=== PATIENT | male | born 1960 | race Caucasian/White ===

== ENCOUNTER → 2016-09-06 | Outpatient (CLI) | payer BC, OTHER ==
--- NOTE | 2016-09-07 07:49 | REP ---
Clinical: Trauma. Laceration. Technique: AP, lateral, bilateral oblique views of the right second digit. Findings: Soft tissue swelling is appreciated without acute fracture or dislocation. No subcutaneous emphysema or radiodense foreign body. Impression: Soft-tissue swelling. No acute fracture. No foreign body. Signed by Pravin Ward MD 09/07/2016 07:40 A
== END ==
LOC: M ADAMS 19:20
PROVIDERS: ATTEND Physician Assistant
DX: M79.644 Pain in right finger(s) (principal)

== ENCOUNTER → 2017-02-08 | Outpatient (REF) | payer BC, OTHER ==
[~2017-02-08] MED LIST: ASPI1TAB PO; ATOR1TAB21 PO; CELE100C PO; METO25TA74 PO; MULT1TAB10 PO; NITR4TASL SL; OMEP40CA2 PO; PLAV75TA38 PO; RANO5TAB PO
[2017-02-08 14:19] LABS: BASO % 0.4 % (0.0-1.0); EOS # 0.1 K/mm3 (0.0-0.50); EOS % 1.2 % (0.0-3.0); LARGE UNSTAINED CELL # 0.1 K/mm3 (0.0-0.4); LARGE UNSTAINED CELL % 1.1 % (0.0-4.0); LYMPH % 20.2 % (24.0-44.0); MEAN CORPUSCULAR HEMOGLOBIN 31.5 pg (27.0-33.0); MEAN CORPUSCULAR HGB CONC 34.5 g/dl (32.0-36.5); MEAN CORPUSCULAR VOLUME 91.4 fl (80.0-96.0); MONO # 0.5 K/mm3 (0.0-0.8); MONO % 5.8 % (0.0-5.0); NEUTROPHILS # 6.7 K/mm3 (1.8-7.7); NEUTROPHILS % 71.3 % (36.0-66.0); PLATELET COUNT, AUTOMATED 149 k/mm3 (150-450); RED CELL DISTRIBUTION WIDTH 12.7 % (11.5-14.5); WHITE BLOOD COUNT 9.4 K/mm3 (4.0-10.0)
[2017-02-08 15:28] LABS: ALBUMIN/GLOBULIN RATIO 1.43 (1.00-1.93); ALKALINE PHOSPHATASE 61 U/L (45-117); ALT/SGPT 31 U/L (12-78); ANION GAP 7 MEQ/L (8-16); AST/SGOT 16 U/L (15-37); BILIRUBIN,TOTAL 0.6 MG/DL (0.2-1.0); BLOOD UREA NITROGEN 18 MG/DL (7-18); CARBON DIOXIDE LEVEL 25 MEQ/L (21-32); CHLORIDE LEVEL 108 MEQ/L (98-107); CHOLESTEROL LEVEL 157 MG/DL (<200); CREATININE FOR GFR 0.72 MG/DL (0.70-1.30); GLOMERULAR FILTRATION RATE > 60.0 (>56); GLUCOSE, FASTING 92 MG/DL (70-105); POTASSIUM SERUM 4.1 MEQ/L (3.5-5.1); SODIUM LEVEL 140 MEQ/L (136-145); TOTAL PROTEIN 6.8 GM/DL (6.4-8.2); TRIGLYCERIDES LEVEL 465 MG/DL (<150)
[2017-02-09 14:11] LABS: PSA TOTAL 0.4 ng/mL (0.0-4.0)
== END ==
LOC: M LABDRWAD 13:34
PROVIDERS: ATTEND Nurse Practitioner Family
DX: E78.4 Other hyperlipidemia (principal); K21.9 Gastro-esophageal reflux disease without esophagitis

== ENCOUNTER → 2017-02-22 | Outpatient (CLI) | payer BC, OTHER ==
[~2017-02-22] VITALS: Ht 170.2 cm; Wt 96.6 kg
[~2017-02-22] MED LIST changes: +LIDOCAINE 2% INJ 100 MG/5 ML SDV (FOR ANES.) As Ordered ONE; +METO1TAB32 PO; -METO25TA74 PO; +NS 1,000 ML IV SCH; +PLAV1TAB2 PO; -PLAV75TA38 PO; +PROPOFOL 200 MG/20 ML VIAL As Ordered ONE; +fentaNYL 100 MCG/2 ML INJECTION (J3010) As Ordered ONE
--- NOTE | 2017-02-22 08:35 | ROOR ---
Patient Name: Samuel Gannon Procedure Date: 02/22/2017 8:17 AM Date of : 1960 Age: 56 Room: [facility] Gender: Male Note Status: Finalized Procedure: Upper Endoscopy + Biopsies Indications: Heartburn, Exclusion of Gagnon's esophagus Providers: Ludwig Stanton MD Referring MD: Landon Messer NP Requesting Provider: Medicines: Monitored Anesthesia Care Complications: No immediate complications. Procedure: Pre-Anesthesia Assessment: - The heart rate, respiratory rate, oxygen saturations, blood pressure, adequacy of pulmonary ventilation, and response to care were monitored throughout the procedure. The Endoscope was introduced through the mouth, and advanced to the second part of duodenum. The upper GI endoscopy was accomplished without difficulty. The patient tolerated the procedure well. Findings: The Z-line was irregular and was found 40 cm from the incisors. Multiple biopsies were obtained with cold forceps for evaluation to rule out Gagnon's Esophagus randomly at the gastroesophageal junction. A small hiatal hernia was present. No other significant abnormalities were identified in a careful examination of the stomach. The exam of the duodenum was otherwise normal. Impression: - Z-line irregular, 40 cm from the incisors. - Small hiatal hernia. - Multiple biopsies were obtained at the gastroesophageal junction. - The examination was otherwise normal. Recommendation: - Patient has a contact number available for emergencies. The signs and symptoms of potential delayed complications were discussed with the patient. Return to normal activities tomorrow. Written discharge instructions were provided to the patient. - High fiber diet. - Discharge patient to home. - Continue present medications. - Await pathology results. - Telephone GI clinic for pathology results in 1 week. - Repeat upper endoscopy for surveillance based on pathology results. - The findings and recommendations were discussed with the patient's family. Ludwig Stanton MD Ludwig Stanton MD 02/22/2017 8:34:23 AM This report has been signed electronically. Number of Addenda: 0 Note Initiated On: 02/22/2017 8:17 AM Estimated Blood Loss: Estimated blood loss: none.
--- NOTE | 2017-02-22 08:49 | ROOR ---
Patient Name: Samuel Gannon Procedure Date: 02/22/2017 8:18 AM Date of : 1960 Age: 56 Room: [facility] Gender: Male Note Status: Finalized Procedure: Total Colonoscopy to Cecum + Biopsy Polypectomy Indications: Screening for colorectal malignant neoplasm Providers: Ludwig Stanton MD Referring MD: Landon Messer NP Requesting Provider: Medicines: Monitored Anesthesia Care Complications: No immediate complications. Procedure: Pre-Anesthesia Assessment: - The heart rate, respiratory rate, oxygen saturations, blood pressure, adequacy of pulmonary ventilation, and response to care were monitored throughout the procedure. The Colonoscope was introduced through the anus and advanced to the cecum, identified by appendiceal orifice and ileocecal valve. The colonoscopy was performed without difficulty. The patient tolerated the procedure well. The quality of the bowel preparation was excellent. Findings: The perianal and digital rectal examinations were normal. Non-bleeding internal hemorrhoids were found during retroflexion. The hemorrhoids were small and Grade I (internal hemorrhoids that do not prolapse). A diminutive polyp was found in the mid transverse colon. The polyp was sessile. The polyp was removed with a jumbo cold forceps. Resection and retrieval were complete. Scattered small-mouthed diverticula were found in the recto-sigmoid colon, sigmoid colon and descending colon. The exam was otherwise without abnormality on direct and retroflexion views. Impression: - Non-bleeding internal hemorrhoids. - One diminutive polyp in the mid transverse colon, removed with a jumbo cold forceps. Resected and retrieved. - Diverticulosis in the recto-sigmoid colon, in the sigmoid colon and in the descending colon. - The examination was otherwise normal on direct and retroflexion views. - The exam was otherwise normal to the cecum. Recommendation: - Patient has a contact number available for emergencies. The signs and symptoms of potential delayed complications were discussed with the patient. Return to normal activities tomorrow. Written discharge instructions were provided to the patient. - High fiber diet. - Discharge patient to home. - Continue present medications. - Await pathology results. - Telephone GI clinic for pathology results in 1 week. - Repeat colonoscopy in 10 years for screening purposes. - Return to referring physician. - The findings and recommendations were discussed with the patient's family. Ludwig Stanton MD Ludwig Stanton MD 02/22/2017 8:49:41 AM This report has been signed electronically. Number of Addenda: 0 Note Initiated On: 02/22/2017 8:18 AM Estimated Blood Loss: Estimated blood loss: none.
[2017-02-22 09:20] VITALS: BP 121/73
== END | disposition home or self-care (01) ==
LOC: M OPP 07:27
PROVIDERS: ATTEND Internal Medicine Gastroenterology
DX: Z12.11 Encounter for screening for malignant neoplasm of colon (principal); K64.0 First degree hemorrhoids; D12.3 Benign neoplasm of transverse colon; K57.30 Diverticulosis of large intestine without perforation or abscess without bleeding; K21.9 Gastro-esophageal reflux disease without esophagitis; K22.8 Other specified diseases of esophagus; K44.9 Diaphragmatic hernia without obstruction or gangrene; K22.70 Barrett's esophagus without dysplasia; I10 Essential (primary) hypertension; E78.00 Pure hypercholesterolemia, unspecified; I25.10 Atherosclerotic heart disease of native coronary artery without angina pectoris; E04.1 Nontoxic single thyroid nodule; F17.210 Nicotine dependence, cigarettes, uncomplicated; Z79.899 Other long term (current) drug therapy; Z79.82 Long term (current) use of aspirin; Z88.8 Allergy status to other drugs, medicaments and biological substances; Z95.5 Presence of coronary angioplasty implant and graft; I25.2 Old myocardial infarction
CPT/HCPCS: 43239; 45380; 88305; J3010

== ENCOUNTER → 2017-10-21 | Outpatient (REF) | payer OTHER ==
[2017-10-21 12:43] LABS: BASO % 0.4 % (0.0-1.0); EOS # 0.1 10^3/uL (0.0-0.50); HEMATOCRIT 44.9 % (42.0-52.0); HEMOGLOBIN 15.3 g/dl (14.0-18.0); IMMATURE GRANULOCYTE % 0.4 % (0-3.0); LYMPH # 2.3 10^3/uL (1.5-4.5); MEAN CORPUSCULAR HEMOGLOBIN 30.5 pg (27.0-33.0); MEAN CORPUSCULAR HGB CONC 34.1 g/dl (32.0-36.5); MEAN CORPUSCULAR VOLUME 89.6 fl (80.0-96.0); MONO # 0.6 10^3/uL (0.0-0.8); MONO % 6.2 % (0.0-5.0); NEUTROPHILS # 6.4 10^3/uL (1.8-7.7); PLATELET COUNT, AUTOMATED 168 10^3/uL (150-450); RED BLOOD COUNT 5.01 10^6/uL (4.30-6.10); RED CELL DISTRIBUTION WIDTH 12.3 % (11.5-14.5); WHITE BLOOD COUNT 9.4 10^3/uL (4.0-10.0)
[2017-10-21 13:03] LABS: ALBUMIN/GLOBULIN RATIO 1.29 (1.00-1.93); ALKALINE PHOSPHATASE 67 U/L (45-117); ALT/SGPT 37 U/L (12-78); ANION GAP 6 MEQ/L (8-16); AST/SGOT 20 U/L (7-37); BILIRUBIN,TOTAL 0.4 MG/DL (0.2-1.0); BLOOD UREA NITROGEN 16 MG/DL (7-18); CALCIUM LEVEL 8.9 MG/DL (8.5-10.1); CARBON DIOXIDE LEVEL 27 MEQ/L (21-32); CHLORIDE LEVEL 109 MEQ/L (98-107); CHOLESTEROL LEVEL 149 MG/DL (<200); CREATININE FOR GFR 0.86 MG/DL (0.70-1.30); FREE T3 3.3 PG/ML (2.2-4.0); FREE T4 0.74 NG/DL (0.76-1.46); GLOMERULAR FILTRATION RATE > 60.0 (>56); GLUCOSE, FASTING 115 MG/DL (70-100); HDL CHOLESTEROL 26 MG/DL (>40); LDL CHOLESTEROL 57.4 MG/DL (<100); NON-HDL-C 123 MG/DL; SODIUM LEVEL 142 MEQ/L (136-145); TOTAL PROTEIN 7.1 GM/DL (6.4-8.2); TRIGLYCERIDES LEVEL 328 MG/DL (<150)
== END ==
LOC: M LABDRWAD 12:24
DX: E78.4 Other hyperlipidemia (principal); K21.9 Gastro-esophageal reflux disease without esophagitis; E04.1 Nontoxic single thyroid nodule
CPT/HCPCS: 84443

== ENCOUNTER → 2018-04-16 | Outpatient (REF) | payer BC, OTHER ==
[2018-04-16 20:46] LABS: BASO % 0.3 % (0.0-1.0); EOS # 0.1 10^3/uL (0.0-0.50); EOS % 1.3 % (0.0-3.0); HEMATOCRIT 43.4 % (42.0-52.0); HEMOGLOBIN 15.1 g/dl (13.5-17.5); IMMATURE GRANULOCYTE % 0.4 % (0-3.0); LYMPH # 2.7 10^3/uL (1.5-4.5); LYMPH % 25.4 % (24.0-44.0); MEAN CORPUSCULAR HEMOGLOBIN 31.1 pg (27.0-33.0); MEAN CORPUSCULAR HGB CONC 34.8 g/dl (32.0-36.5); MEAN CORPUSCULAR VOLUME 89.3 fl (80.0-96.0); MONO % 9.7 % (0.0-5.0); NEUTROPHILS # 6.6 10^3/uL (1.8-7.7); NEUTROPHILS % 62.9 % (36.0-66.0); PLATELET COUNT, AUTOMATED 155 10^3/uL (150-450); RED BLOOD COUNT 4.86 10^6/uL (4.30-6.10); RED CELL DISTRIBUTION WIDTH 12.4 % (11.5-14.5); WHITE BLOOD COUNT 10.5 10^3/uL (4.0-10.0)
[2018-04-16 21:03] LABS: ANION GAP 10 MEQ/L (8-16); BLOOD UREA NITROGEN 17 MG/DL (7-18); CALCIUM LEVEL 9.3 MG/DL (8.5-10.1); CARBON DIOXIDE LEVEL 25 MEQ/L (21-32); CHLORIDE LEVEL 107 MEQ/L (98-107); CREATININE FOR GFR 0.93 MG/DL (0.70-1.30); GLOMERULAR FILTRATION RATE > 60.0 (>56); GLUCOSE, FASTING 92 MG/DL (70-100); POTASSIUM SERUM 3.9 MEQ/L (3.5-5.1); SODIUM LEVEL 142 MEQ/L (136-145)
== END ==
LOC: M LAB REF 20:32
DX: Z01.818 Encounter for other preprocedural examination (principal); I25.10 Atherosclerotic heart disease of native coronary artery without angina pectoris
CPT/HCPCS: 80048

== ENCOUNTER → 2018-04-18 | Outpatient (CLI) | payer BC, OTHER ==
[2018-04-18 13:01] LABS: BASO % 0.3 % (0.0-1.0); EOS # 0.1 10^3/uL (0.0-0.50); EOS % 1.2 % (0.0-3.0); HEMATOCRIT 45.3 % (42.0-52.0); HEMOGLOBIN 15.4 g/dl (13.5-17.5); IMMATURE GRANULOCYTE % 0.4 % (0-3.0); LYMPH # 2.4 10^3/uL (1.5-4.5); LYMPH % 22.7 % (24.0-44.0); MEAN CORPUSCULAR HEMOGLOBIN 30.5 pg (27.0-33.0); MEAN CORPUSCULAR VOLUME 89.7 fl (80.0-96.0); MONO # 0.9 10^3/uL (0.0-0.8); MONO % 8.3 % (0.0-5.0); NEUTROPHILS # 7.2 10^3/uL (1.8-7.7); NEUTROPHILS % 67.1 % (36.0-66.0); PLATELET COUNT, AUTOMATED 165 10^3/uL (150-450); RED BLOOD COUNT 5.05 10^6/uL (4.30-6.10); RED CELL DISTRIBUTION WIDTH 12.5 % (11.5-14.5); WHITE BLOOD COUNT 10.7 10^3/uL (4.0-10.0)
[2018-04-18 14:12] LABS: ALBUMIN 4.1 GM/DL (3.2-5.2); ALBUMIN/GLOBULIN RATIO 1.32 (1.00-1.93); ALKALINE PHOSPHATASE 64 U/L (45-117); ALT/SGPT 38 U/L (12-78); ANION GAP 7 MEQ/L (8-16); AST/SGOT 19 U/L (7-37); BILIRUBIN,TOTAL 0.4 MG/DL (0.2-1.0); BLOOD UREA NITROGEN 20 MG/DL (7-18); CALCIUM LEVEL 9.3 MG/DL (8.5-10.1); CARBON DIOXIDE LEVEL 28 MEQ/L (21-32); CHLORIDE LEVEL 109 MEQ/L (98-107); CHOLESTEROL LEVEL 136 MG/DL (<200); CREATININE FOR GFR 0.87 MG/DL (0.70-1.30); FREE T3 3.2 PG/ML (2.2-4.0); FREE T4 0.82 NG/DL (0.76-1.46); GLOMERULAR FILTRATION RATE > 60.0 (>56); GLUCOSE, FASTING 101 MG/DL (70-100); HDL CHOLESTEROL 25 MG/DL (>40); LDL CHOLESTEROL 42.4 MG/DL (<100); NON-HDL-C 111 MG/DL; POTASSIUM SERUM 4.3 MEQ/L (3.5-5.1); SODIUM LEVEL 144 MEQ/L (136-145); TOTAL PROTEIN 7.2 GM/DL (6.4-8.2); TRIGLYCERIDES LEVEL 343 MG/DL (<150)
[2018-04-19 14:50] LABS: PSA TOTAL 0.4 ng/mL (0.0-4.0)
== END ==
LOC: M ADAMS 08:07
DX: K21.9 Gastro-esophageal reflux disease without esophagitis (principal); Z12.5 Encounter for screening for malignant neoplasm of prostate; E04.1 Nontoxic single thyroid nodule; E78.4 Other hyperlipidemia; I25.10 Atherosclerotic heart disease of native coronary artery without angina pectoris

== ENCOUNTER 2018-05-16 07:50 | Day surgery (SDC) | payer BC, OTHER ==
[~2018-05-16 07:50] MED LIST changes: -ASPI1TAB PO; -ATOR1TAB21 PO; -CELE100C PO; +LIDOCAINE 2% INJ 100 MG/5 ML SDV (FOR ANES.) As Ordered; -LIDOCAINE 2% INJ 100 MG/5 ML SDV (FOR ANES.) As Ordered ONE; -METO1TAB32 PO; -MULT1TAB10 PO; -NITR4TASL SL; -NS 1,000 ML IV SCH; -OMEP40CA2 PO; -PLAV1TAB2 PO; +PROPOFOL 200 MG/20 ML VIAL As Ordered; -PROPOFOL 200 MG/20 ML VIAL As Ordered ONE; -RANO5TAB PO; -fentaNYL 100 MCG/2 ML INJECTION (J3010) As Ordered ONE
[2018-05-16] MEDS: NS 1,000 ML IV (08:39)
== END 2018-05-16 09:59 | disposition home or self-care (01) ==
LOC: M OPP 07:50
DX: R12 Heartburn (principal); K22.70 Barrett's esophagus without dysplasia; K22.8 Other specified diseases of esophagus; K44.9 Diaphragmatic hernia without obstruction or gangrene; Z95.5 Presence of coronary angioplasty implant and graft; I25.119 Atherosclerotic heart disease of native coronary artery with unspecified angina pectoris; I25.2 Old myocardial infarction; I10 Essential (primary) hypertension; E78.5 Hyperlipidemia, unspecified; E04.1 Nontoxic single thyroid nodule; K21.9 Gastro-esophageal reflux disease without esophagitis; R23.3 Spontaneous ecchymoses; M19.90 Unspecified osteoarthritis, unspecified site; M51.9 Unspecified thoracic, thoracolumbar and lumbosacral intervertebral disc disorder; F17.210 Nicotine dependence, cigarettes, uncomplicated; Z88.8 Allergy status to other drugs, medicaments and biological substances; Z79.82 Long term (current) use of aspirin; Z79.899 Other long term (current) drug therapy; Z79.02 Long term (current) use of antithrombotics/antiplatelets
CPT/HCPCS: 43239

== ENCOUNTER 2018-09-29 15:59 | Emergency (ER) | payer BC, OTHER ==
[~2018-09-29] VITALS: Ht 170.2 cm; Wt 96.4 kg
[~2018-09-29 15:59] MED LIST changes: +ASPI1TAB PO; +ATOR1TAB21 PO; +CELE100C PO; -LIDOCAINE 2% INJ 100 MG/5 ML SDV (FOR ANES.) As Ordered; +METO1TAB32 PO; +MULT1TAB10 PO; +NITR4TASL SL; +OMEP40CA2 PO; +PLAV1TAB2 PO; -PROPOFOL 200 MG/20 ML VIAL As Ordered; +RANO5TAB PO
[2018-09-29] MEDS ORDERED: NS 1,000 ML IV SCH (16:29)
[2018-09-29] MEDS ORDERED: MORPHINE 4 MG/ML 1ML VIAL/SYRINGE (J2270) IV ONE (16:30)
--- NOTE | 2018-09-29 16:34 | REP ---
CT Head without contrast HISTORY: Trauma COMPARISON: 11/15/2015 Areas of decreased attenuation are present in the periventricular white matter. This represents small-vessel ischemic disease. There is no intraparenchymal hemorrhage, acute infarct, mass or midline shift. The ventricular system is normal in appearance. The cortical sulci are dilated consistent with minimal volume loss. There is no extra cerebral collection. There is no fracture. A 10 mm osteoma is present arising from the frontal bone in the midline. The visualized sinuses are clear. IMPRESSION: 1. Small vessel ischemic disease. 2. Minimal volume loss. Electronically Signed by Bryan Galo MD 09/29/2018 04:25 P
--- NOTE | 2018-09-29 16:40 | REP ---
CT cervical spine without contrast HISTORY: Trauma COMPARISON: 11/15/2015 There is no acute fracture or subluxation. Disc bulges are present at the C4-5 and C5-6 levels. A disc bulge with associated osteophyte formation is present at the C6-7 level. There is minimal narrowing of the spinal canal. Uncinate process hypertrophy is present at the C6-7 level. This produces minimal and mild narrowing of the right and left C6 neural foramina respectively. The remaining neural foramina are patent. The C5-6 and C6-7 intervertebral discs are decreased in height consistent with disc degeneration. 8-0.7 cm hypodensity is present in the thyroid isthmus. IMPRESSION: 1. There is no acute fracture or subluxation. 2. There is cervical spondylosis at the C4-5 through C6-7 levels. 3. There is a 2.8 cm hypodensity in the thyroid isthmus. Ultrasound is recommended for further evaluation. Electronically Signed by Bryan Galo MD 09/29/2018 04:31 P
[2018-09-29 16:47] LABS: BASO % 0.2 % (0.0-1.0); EOS # 0.1 10^3/uL (0.0-0.50); EOS % 1.1 % (0.0-3.0); HEMATOCRIT 41.9 % (42.0-52.0); HEMOGLOBIN 14.7 g/dl (13.5-17.5); LYMPH # 2.4 10^3/uL (1.5-4.5); LYMPH % 18.4 % (24.0-44.0); MEAN CORPUSCULAR HEMOGLOBIN 31.1 pg (27.0-33.0); MEAN CORPUSCULAR HGB CONC 35.1 g/dl (32.0-36.5); MEAN CORPUSCULAR VOLUME 88.6 fl (80.0-96.0); MONO # 1.2 10^3/uL (0.0-0.8); NEUTROPHILS # 9.4 10^3/uL (1.8-7.7); NEUTROPHILS % 70.8 % (36.0-66.0); PLATELET COUNT, AUTOMATED 160 10^3/uL (150-450); RED BLOOD COUNT 4.73 10^6/uL (4.30-6.10); WHITE BLOOD COUNT 13.2 10^3/uL (4.0-10.0)
[2018-09-29 17:13] LABS: BLOOD UREA NITROGEN 18 MG/DL (7-18); CALCIUM LEVEL 9.1 MG/DL (8.5-10.1); CARBON DIOXIDE LEVEL 24 MEQ/L (21-32); CHLORIDE LEVEL 107 MEQ/L (98-107); GLOMERULAR FILTRATION RATE > 60.0 (>56); GLUCOSE, FASTING 109 MG/DL (70-100); POTASSIUM SERUM 3.7 MEQ/L (3.5-5.1); SODIUM LEVEL 140 MEQ/L (136-145)
[2018-09-29 18:46] VITALS: BP 167/83
--- NOTE | 2018-09-29 20:21 | REP ---
CT THORACIC SPINE: CT thoracic spine was performed in the axial plane. Sagittal and coronal reconstruction images are performed. There is no fracture or dislocation. Vertebral bodies are normal in height and are well aligned with normal thoracic kyphosis. There is mild diffuse spurring. There is no mild disc space narrowing at virtually all levels. No abnormal density is seen in the spinal canal. Incidental node is made of a left adrenal adenoma measuring approximately 2.7 cm in diameter. This was seen on the prior chest CT of 10/03/2015. The visualized lungs are clear and dependant atelectatic change is noted. IMPRESSION: Mild diffuse degenerative changes without fracture or dislocation. Electronically Signed by Jesus Holman MD 10/01/2018 01:23 P
--- NOTE | 2018-09-29 20:22 | REP ---
CT LUMBAR SPINE: CT lumbar spine was performed in the axial plane. Sagittal and coronal reconstruction images are performed. Vertebral bodies are normal in height and are well aligned with normal lumbar lordosis. There is mild diffuse spurring. There is slight disc space narrowing at L5-S1. No large disc herniations are seen. IMPRESSION: Mild degenerative changes without fracture or dislocation. Electronically Signed by Jesus Holman MD 10/01/2018 01:23 P
--- NOTE | 2018-09-29 20:23 | REP ---
CHEST, TWO VIEWS: There is no evidence of acute infiltrate. No pleural effusion is seen. The heart is normal in size. The mediastinal silhouette is unremarkable. The visualized osseous structures are intact. IMPRESSION: No acute pulmonary disease. Electronically Signed by Jesus Holman MD 10/01/2018 01:23 P
--- NOTE | 2018-09-29 20:24 | REP ---
RIGHT SHOULDER, THREE VIEWS: Three views of the right shoulder are performed. No acute fracture or dislocation is seen. There is moderate narrowing, subchondral sclerosis and spurring at the glenohumeral joint. There is moderate narrowing and mild hypertrophic change at the acromioclavicular joint. There is a high riding humeral head suggesting a tear of the rotator cuff. IMPRESSION: No acute fracture or dislocation. Moderate degenerative changes. High riding humerus suggests a rotator cuff tear. Electronically Signed by Jesus Holman MD 10/01/2018 01:24 P
--- NOTE | 2018-09-29 20:25 | REP ---
RIGHT LOWER LEG, AP AND LATERAL: TIBIA/FIBULA: There is no evidence of an acute fracture, dislocation or intrinsic bone disease. There is a large inferior calcaneal spur. IMPRESSION: No fracture or dislocation. Electronically Signed by Jesus Holman MD 10/01/2018 01:24 P
--- NOTE | 2018-09-30 09:19 | ED PDOC ---
Post-Departure Follow-Up brian mitchell faxed formal report of ct c spine for fu Todd Macario MD Sep 30, 2018 09:19
== END 2018-09-29 19:00 | disposition home or self-care (01) ==
LOC: M ED 15:59
DX: S06.0X1A Concussion with loss of consciousness of 30 minutes or less, initial encounter (principal); S40.011A Contusion of right shoulder, initial encounter; W13.2XXA Fall from, out of or through roof, initial encounter; Y92.098 Other place in other non-institutional residence as the place of occurrence of the external cause; Y93.H1 Activity, digging, shoveling and raking; M54.9 Dorsalgia, unspecified; M79.661 Pain in right lower leg; M25.511 Pain in right shoulder; G89.29 Other chronic pain; I11.9 Hypertensive heart disease without heart failure; I25.10 Atherosclerotic heart disease of native coronary artery without angina pectoris; K21.9 Gastro-esophageal reflux disease without esophagitis; Z88.1 Allergy status to other antibiotic agents; Z79.899 Other long term (current) drug therapy; Z79.82 Long term (current) use of aspirin; Z79.02 Long term (current) use of antithrombotics/antiplatelets
CPT/HCPCS: 70450; 71046; 72125; 72128; 72131; 73030; 73590; 80048; 85025; 96374; 99284; J2270

== ENCOUNTER → 2019-07-03 | Outpatient (REF) | payer OTHER ==
[~2019-07-03] MED LIST changes: -ASPI1TAB PO; +ASPI81TA26 PO; -OMEP40CA2 PO; +OMEP40CA97 PO; +RANO500T7 PO; -RANO5TAB PO
[2019-07-03 14:08] LABS: HEMATOCRIT 46.6 % (42.0-52.0); HEMOGLOBIN 15.6 g/dl (13.5-17.5); MEAN CORPUSCULAR HEMOGLOBIN 30.4 pg (27.0-33.0); MEAN CORPUSCULAR HGB CONC 33.5 g/dl (32.0-36.5); MEAN CORPUSCULAR VOLUME 90.8 fl (80.0-96.0); PLATELET COUNT, AUTOMATED 171 10^3/uL (150-450); RED BLOOD COUNT 5.13 10^6/uL (4.30-6.10); WHITE BLOOD COUNT 10.4 10^3/uL (4.0-10.0)
[2019-07-03 14:21] LABS: ALBUMIN 3.9 GM/DL (3.2-5.2); ALT/SGPT 34 U/L (12-78); BILIRUBIN,TOTAL 0.4 MG/DL (0.2-1.0); BLOOD UREA NITROGEN 17 MG/DL (7-18); CALCIUM LEVEL 8.9 MG/DL (8.8-10.2); CARBON DIOXIDE LEVEL 27 MEQ/L (21-32); CHLORIDE LEVEL 107 MEQ/L (98-107); CHOLESTEROL LEVEL 127 MG/DL (<200); CHOLESTEROL RISK RATIO 4.884 (<5); CREATININE FOR GFR 0.81 MG/DL (0.70-1.30); GLOMERULAR FILTRATION RATE > 60.0 (>49); GLUCOSE, FASTING 98 MG/DL (70-100); HDL CHOLESTEROL 26 MG/DL (>40); LDL CHOLESTEROL 50 MG/DL (<100); NON-HDL-C 101 MG/DL; POTASSIUM SERUM 4.2 MEQ/L (3.5-5.1); SODIUM LEVEL 139 MEQ/L (136-145); TOTAL PROTEIN 7.2 GM/DL (6.4-8.2); TRIGLYCERIDES LEVEL 253 MG/DL (<150)
[2019-07-03 14:48] LABS: CREATININE, URINE 77.9 MG/DL; MALB URINE SIEMENS 11.3 MG/L; MAU/CREAT RATIO 14.5 MCG/MG (0.0-30.0)
== END ==
LOC: M SFHCADAM 07:58
PROVIDERS: ATTEND Physician Assistant
DX: K22.70 Barrett's esophagus without dysplasia (principal); E04.1 Nontoxic single thyroid nodule; E78.5 Hyperlipidemia, unspecified; G89.21 Chronic pain due to trauma; I25.2 Old myocardial infarction

== ENCOUNTER → 2019-07-28 | Outpatient (REF) | payer OTHER | LOC: M LAB REF 15:29 | PROVIDERS: ATTEND Otolaryngology | DX: K21.9 Gastro-esophageal reflux disease without esophagitis (principal); E04.1 Nontoxic single thyroid nodule ==

== ENCOUNTER → 2019-08-24 | Outpatient (CLI) | payer BC, OTHER ==
--- NOTE | 2019-08-24 09:43 | REP ---
Clinical: Lung screening. History smoking. Comparison: 10/03/2015 Technique: Axial low-dose noncontrast images from the thoracic inlet to the upper abdomen using lung screening technique. Findings: The lung hinojosa are well-aerated. Mild biapical and scattered subpleural scarring is appreciated along with few scattered stable nodules up to 5 mm (image 40) appear essentially unchanged compared to 2016. No consolidation, significant nodule or mass lesion is appreciated. No pleural effusion/reaction or pneumothorax. Tracheobronchial tree is patent. Mediastinum demonstrates atherosclerotic changes of the coronary arteries without cardiomegaly. Impression: Lung-RADS category II. Management recommendations include annual low-dose CT evaluation. Electronically Signed by Pravin Ward MD 08/24/2019 09:34 A
== END ==
LOC: M RAD 08:35
PROVIDERS: ATTEND Physician Assistant
DX: R91.8 Other nonspecific abnormal finding of lung field (principal); F17.200 Nicotine dependence, unspecified, uncomplicated

== ENCOUNTER → 2019-10-30 | Outpatient (REF) | payer OTHER ==
[2019-10-30 19:04] LABS: HEMATOCRIT 43.8 % (42.0-52.0); HEMOGLOBIN 14.5 g/dl (13.5-17.5); MEAN CORPUSCULAR HEMOGLOBIN 29.2 pg (27.0-33.0); MEAN CORPUSCULAR HGB CONC 33.1 g/dl (32.0-36.5); MEAN CORPUSCULAR VOLUME 88.3 fl (80.0-96.0); PLATELET COUNT, AUTOMATED 149 10^3/uL (150-450); RED BLOOD COUNT 4.96 10^6/uL (4.30-6.10); WHITE BLOOD COUNT 10.1 10^3/uL (4.0-10.0)
[2019-10-30 19:11] LABS: ALBUMIN 4.1 GM/DL (3.2-5.2); ALT/SGPT 36 U/L (12-78); BILIRUBIN,TOTAL 0.3 MG/DL (0.2-1.0); BLOOD UREA NITROGEN 15 MG/DL (7-18); CALCIUM LEVEL 9.2 MG/DL (8.8-10.2); CARBON DIOXIDE LEVEL 29 MEQ/L (21-32); CHLORIDE LEVEL 106 MEQ/L (98-107); CREATININE FOR GFR 0.86 MG/DL (0.70-1.30); GLOMERULAR FILTRATION RATE > 60.0 (>49); GLUCOSE, FASTING 102 MG/DL (70-100); SODIUM LEVEL 139 MEQ/L (136-145); TOTAL PROTEIN 7.5 GM/DL (6.4-8.2)
== END ==
LOC: M SFHCADAM 15:59
PROVIDERS: ATTEND Physician Assistant
DX: E04.1 Nontoxic single thyroid nodule (principal); I25.2 Old myocardial infarction; R73.01 Impaired fasting glucose

== ENCOUNTER → 2020-08-13 | Outpatient (CLI) | payer BC, OTHER | LOC: M LABSMTC 12:03 | PROVIDERS: ATTEND Family Medicine | DX: Z20.828 Contact with and (suspected) exposure to other viral communicable diseases (principal) ==

== ENCOUNTER → 2020-10-11 | Outpatient (REF) | payer BC, OTHER | LOC: M SFHCPLAZ 13:22 | PROVIDERS: ATTEND Physician Assistant | DX: L03.90 Cellulitis, unspecified (principal) ==

== ENCOUNTER → 2020-11-03 | Outpatient (REF) | payer OTHER ==
[2020-11-03 13:08] LABS: HEMATOCRIT 44.2 % (42.0-52.0); HEMOGLOBIN 14.8 g/dl (13.5-17.5); MEAN CORPUSCULAR HGB CONC 33.5 g/dl (32.0-36.5); MEAN CORPUSCULAR VOLUME 89.7 fl (80.0-96.0); PLATELET COUNT, AUTOMATED 144 10^3/uL (150-450); RED BLOOD COUNT 4.93 10^6/uL (4.30-6.10); WHITE BLOOD COUNT 8.1 10^3/uL (4.0-10.0)
[2020-11-03 13:22] LABS: HEMOGLOBIN A1c 5.5 %
[2020-11-03 13:42] LABS: MALB URINE SIEMENS 29.4 MG/L; MAU/CREAT RATIO 23.1 MCG/MG (0.0-30.0)
[2020-11-03 13:48] LABS: ALT/SGPT 51 U/L (12-78); BILIRUBIN,TOTAL 0.3 MG/DL (0.2-1.0); BLOOD UREA NITROGEN 17 MG/DL (7-18); CALCIUM LEVEL 8.9 MG/DL (8.8-10.2); CARBON DIOXIDE LEVEL 28 MEQ/L (21-32); CHLORIDE LEVEL 110 MEQ/L (98-107); CHOLESTEROL LEVEL 135 MG/DL (<200); CHOLESTEROL RISK RATIO 4.354 (<5); CREATININE FOR GFR 0.78 MG/DL (0.70-1.30); FOLATE > 24.0 NG/ML; FREE T4 0.76 NG/DL (0.76-1.46); GLOMERULAR FILTRATION RATE > 60.0 (>49); GLUCOSE, FASTING 99 MG/DL (70-100); HDL CHOLESTEROL 31 MG/DL (>40); LDL CHOLESTEROL 64 MG/DL (<100); NON-HDL-C 104 MG/DL; POTASSIUM SERUM 4.4 MEQ/L (3.5-5.1); SODIUM LEVEL 141 MEQ/L (136-145); TOTAL PROTEIN 6.9 GM/DL (6.4-8.2); TRIGLYCERIDES LEVEL 201 MG/DL (<150); VITAMIN B12 LEVEL 601 PG/ML
== END ==
LOC: M SFHCADAM 08:04
PROVIDERS: ATTEND Physician Assistant
DX: K22.70 Barrett's esophagus without dysplasia (principal); I25.2 Old myocardial infarction; E04.1 Nontoxic single thyroid nodule; I25.10 Atherosclerotic heart disease of native coronary artery without angina pectoris; F17.200 Nicotine dependence, unspecified, uncomplicated; R73.01 Impaired fasting glucose; Z12.5 Encounter for screening for malignant neoplasm of prostate
CPT/HCPCS: 80053; 80061; 82043; 82607; 82746; 83036; 84439; 84443; 85027; G0103

== ENCOUNTER → 2020-11-24 | Outpatient (CLI) | payer BC, OTHER ==
--- NOTE | 2020-11-24 15:11 | REP ---
INDICATION: PAIN. COMPARISON: None. TECHNIQUE: There are four views. FINDINGS: There is mild acromioclavicular osteoarthritis. There is mild glenohumeral osteoarthritis. There is no fracture or dislocation. There are no calcifications. IMPRESSION: Osteoarthritis as described. <Electronically signed by Jesus Polanco > 11/24/20 [id number]
== END ==
LOC: M SOG 13:38
PROVIDERS: ATTEND Orthopaedic Surgery Sports Medicine
DX: M19.012 Primary osteoarthritis, left shoulder (principal)

== ENCOUNTER → 2020-12-16 | Outpatient (CLI) | payer BC, OTHER ==
--- NOTE | 2020-12-19 09:33 | REP ---
INDICATION: PAIN IN LEFT SHOULDER. COMPARISON: Comparison radiographs are from November 24, 2020.. TECHNIQUE: Axial, oblique coronal, and oblique sagittal imaging planes utilized. T1 and T2 weighted scans are included with without fat saturation. FINDINGS: Glenohumeral and acromioclavicular joints are normally aligned. There is moderate to advanced glenohumeral and acromioclavicular joint osteoarthritis. There is inferior and posterior osteophyte formation the glenoid. Superior and inferior osteophyte formation is seen in the humeral head. There is some irregular bony spurring at the superolateral aspect of the humeral head in the region of the rotator cuff attachments. There is a small quantity of glenohumeral joint fluid and a subacromial subdeltoid bursal effusion is seen. There is inferolateral spurring of the acromion process and inferior spurring of the distal clavicle is seen. There is some marrow edema at the AC joint along with narrowing. There is no visible loose body. Subcortical cyst formation is seen in the anteromedial humeral head. There is swelling and increased signal intensity at the genu of the biceps tendon consistent with biceps tendinosis. Similar increased signal intensity is seen in the longitudinal fashion along the subscapularis tendon distally consistent with tendinitis tendinosis. The infraspinatus tendon is intact. The supraspinatus tendon is attenuated focally with what appears to be a bursal surface partial-thickness tear partially retracted. Distal supraspinatus fibers are thinned. No significant muscle atrophy is seen. No periarticular mass or at adenopathy is seen. There is some irregularity of the posterior cartilaginous labrum inferiorly consistent with fraying. The anterior and superior labral components appear intact. There is articular cartilage thinning of the inferomedial aspect of the humeral head. IMPRESSION: Moderate to advanced glenohumeral and acromioclavicular joint osteoarthritis. Advanced tendinosis of the biceps and subscapularis tendons. Partial thickness partially retracted supraspinatus tendon tear. Prominent inferior spurring of the acromion process. Small bursal effusion. <Electronically signed by Nitin Dhillon > 12/19/20 [id number]
== END ==
LOC: M RAD 17:13
PROVIDERS: ATTEND Orthopaedic Surgery Sports Medicine
DX: M19.012 Primary osteoarthritis, left shoulder (principal); M77.8 Other enthesopathies, not elsewhere classified; M25.512 Pain in left shoulder

== ENCOUNTER → 2021-05-04 | Outpatient (CLI) | payer BC, OTHER ==
[~2021-05-04] MED LIST changes: +OMEP40CA4 PO; -OMEP40CA97 PO
== END ==
LOC: M LABSMTC 10:15
PROVIDERS: ATTEND Pediatrics
DX: Z11.52 Encounter for screening for COVID-19 (principal)
CPT/HCPCS: C9803; U0003

== ENCOUNTER 2021-05-07 22:16 | Emergency (ER) | payer BC, OTHER ==
[~2021-05-07] VITALS: Ht 170.2 cm; Wt 96.0 kg
[2021-05-08 00:28] LABS: BASO % 0.1 % (0.0-1.0); EOS # 0.1 10^3/uL (0.0-0.5); EOS % 0.7 % (0.0-3.0); HEMATOCRIT 38.2 % (42.0-52.0); HEMOGLOBIN 13.1 g/dl (13.5-17.5); LYMPH # 1.5 10^3/uL (1.5-5.0); LYMPH % 20.5 % (24.0-44.0); MEAN CORPUSCULAR HEMOGLOBIN 30.6 pg (27.0-33.0); MEAN CORPUSCULAR HGB CONC 34.3 g/dl (32.0-36.5); MEAN CORPUSCULAR VOLUME 89.3 fl (80.0-96.0); MONO # 0.8 10^3/uL (0.0-0.8); MONO % 11.1 % (2.0-8.0); NEUTROPHILS # 4.8 10^3/uL (1.5-8.5); NEUTROPHILS % 66.9 % (36.0-66.0); RED BLOOD COUNT 4.28 10^6/uL (4.30-6.10); WHITE BLOOD COUNT 7.2 10^3/uL (4.0-10.0)
[2021-05-08 00:37] LABS: INR 0.93; PROTHROMBIN TIME 12.9 SECONDS (12.7-14.5)
[2021-05-08 00:38] LABS: PARTIAL THROMBOPLASTIN TIME 36.1 SECONDS (25.9-37.0)
[2021-05-08 00:40] LABS: D-DIMER QUANT 1696.53 ng/ml (<500)
[2021-05-08 00:52] LABS: PLATELET COUNT, AUTOMATED 97 10^3/uL (150-450)
[2021-05-08 00:59] LABS: BLOOD UREA NITROGEN 12 MG/DL (7-18); CALCIUM LEVEL 7.8 MG/DL (8.8-10.2); CARBON DIOXIDE LEVEL 25 MEQ/L (21-32); CHLORIDE LEVEL 109 MEQ/L (98-107); CK-MB VALUE MASS 1.1 NG/ML (<3.6); CPK CREATINE PHOSPHOKINASE 96 U/L (39-308); CREATININE FOR GFR 0.67 MG/DL (0.70-1.30); GLOMERULAR FILTRATION RATE > 60.0 (>49); GLUCOSE, FASTING 115 MG/DL (70-100); MB/CK RELATIVE INDEX 1.15 (< OR =4); SODIUM LEVEL 140 MEQ/L (136-145); TROPONIN I < 0.02 NG/ML (< 0.10)
[2021-05-08] MEDS ORDERED: ISOVUE-370 76% 100ML VIAL As Ordered ONE (01:41)
[2021-05-08] MEDS ORDERED: NS 1,000 ML IV ONE (01:45)
--- NOTE | 2021-05-08 03:53 | REPVR ---
PROCEDURE INFORMATION: Exam: CTA Chest With Contrast Exam date and time: 05/08/2021 1:56 AM Age: 60 years old Clinical indication: Other: Covid; Additional info: SOB, covid, ddimer TECHNIQUE: Imaging protocol: Computed tomographic angiography of the chest with contrast. 3D rendering (Not supervised by radiologist): MIP and/or 3D reconstructed images were created by the technologist. Radiation optimization: All CT scans at this facility use at least one of these dose optimization techniques: automated exposure control; mA and/or kV adjustment per patient size (includes targeted exams where dose is matched to clinical indication); or iterative reconstruction. Contrast material: ISO 370; Contrast volume: 75 ml; Contrast route: INTRAVENOUS (IV); COMPARISON: CT ANGIO CHEST 10/03/2015 10:54 AM FINDINGS: PULMONARY ARTERIES: Diameter of the main pulmonary trunk at 2.9 cm is within normal limits. Enhancement within the pulmonary arteries is preserved bilaterally through the distal segmental levels, without evidence of acute appearing occlusive pulmonary emboli. HEART AND AORTA: Cardiac size is within normal range. No pericardial effusion. Coronary arterial calcifications are noted. Evaluation of the aortic root and ascending thoracic aorta is slightly compromised by cardiac motion artifact. No thoracic aortic aneurysm or dissection is seen otherwise. There is mild appearing atherosclerotic disease. MEDIASTINUM: No mediastinal soft tissue gas. Incompletely imaged, previously visualized hypoenhancing central ischemic thyroid lesion is larger than on the prior study, measuring 3.4 cm. Thyroid neoplasia cannot be excluded. Nonemergent characterization by ultrasound is advised. No mediastinal hematoma. Trace amount of fluid noted within the pericardial recesses. Enlarged mediastinal and hilar lymph nodes are noted. These are worse than on the prior study, with the largest lymph nodes measuring up to 18.6 mm in short axis. The significance of this lymphadenopathy is uncertain, however clinical correlation, further characterization and/or follow-up is advised. No hiatal hernia. No periesophageal inflammatory change. LUNGS: The lungs are symmetric in expansion. There are scattered bilateral multifocal areas of mildly confluent ground-glass, acinar and reticular opacities. These are predominantly subpleural in location. This would be compatible with COVID-19 pneumonia. Follow-up however is advised to confirm resolution. Noncalcified 7 mm right lower lobe pulmonary nodule noted (image 85, series 401) of uncertain significance. Clinical correlation with risk factors is advised. Follow-up for these findings is advised. Consider chest CT in 3-6 months to re-evaluate. No pneumothorax or pleural effusion. Mild scattered emphysematous changes and parenchymal scarring noted. Emphysematous changes are greatest at the lung apices. No bronchiectasis or peribronchial thickening. UPPER ABDOMEN: No free air or free fluid within the visualized upper most abdomen. No calcified gallstones or biliary dilation seen. 2.8 cm indeterminate left adrenal lesion noted, however appearing similar to the prior study and may represent an adenoma. MSK AND BODY WALL: Mild degenerative changes of the spine and bony thorax. Mild superior endplate concavity at T3, T4, T5, T7, T8, T10 and T11 , similar to the prior exam consistent with chronic posttraumatic or degenerative change. IMPRESSION: No evidence for acute pulmonary emboli through the distal segmental levels. There are extensive bilateral pulmonary infiltrates which would be compatible with COVID-19 pneumonia. Findings and recommendations for follow-up discussed above. There is worsening mediastinal and hilar lymphadenopathy compared to the prior study. Lymphadenopathy is not a typical finding with COVID-19 pneumonia. Clinical correlation, further characterization and evaluation at follow-up is advised. Neoplastic nodes cannot be excluded. Indeterminate enlarging, incompletely imaged thyroid nodule. Clinical correlation and nonemergent thyroid ultrasound is advised. Other findings discussed above. Electronically signed by: Mickey Ham On 05/08/2021 03:53:30 AM
[2021-05-08 06:00] VITALS: BP 114/63
--- NOTE | 2021-05-08 06:23 | ED PDOC ---
Post-Departure Follow-Up cta chest faxed to [facility] for fu Todd Macario MD May 08, 2021 06:23
--- NOTE | 2021-05-08 19:30 | ECGEPIP ---
[facility] - ED Test Date: 2021-05-08 Pat Name: ROQUE BATISTA Department: Room: - Gender: Male Perinatal Coordinator: ELISE : 1960 Requested By: ADRIENNE Brand Order Number: [id number] Reading MD: Todd Tavera Measurements Intervals [place] Rate: 81 P: 25 UT: 138 QRS: 23 QRSD: 70 T: 15 QT: 384 QTc: 446 Interpretive Statements Sinus rhythm with occasional premature ventricular complexes Nonspecific ST T wave changes cw 12/12/[address] T wave changes Electronically Signed on 05-08-2021 19:29:35 EDT by Todd Tavera
== END 2021-05-08 06:32 | disposition home or self-care (01) ==
LOC: M ED 22:16
DX: R55 Syncope and collapse (principal); J12.89 Other viral pneumonia; U07.1 COVID-19; R59.1 Generalized enlarged lymph nodes; I25.2 Old myocardial infarction; I25.10 Atherosclerotic heart disease of native coronary artery without angina pectoris; E78.5 Hyperlipidemia, unspecified; K22.70 Barrett's esophagus without dysplasia; Z79.899 Other long term (current) drug therapy; Z79.82 Long term (current) use of aspirin; Z79.01 Long term (current) use of anticoagulants; Z88.8 Allergy status to other drugs, medicaments and biological substances; F17.210 Nicotine dependence, cigarettes, uncomplicated
CPT/HCPCS: 71275; 80048; 82550; 82553; 83605; 84443; 84484; 85025; 85049; 85055; 85379; 85610; 85730; 93005; 93041; 94760; 96360; 96361; 99285; Q9967

== ENCOUNTER 2021-05-08 06:45 | Outpatient (CLI) | payer BC, OTHER ==
[~2021-05-08] VITALS: Ht 170.2 cm; Wt 97.1 kg
--- NOTE | 2021-05-08 05:09 | HPEPDOC ---
General Date of Admission 05/08/21 Date of Service: May 08, 2021 Chief Complaint loss of consciousness Source: Patient History of Present Illness is a 60-year-old male with significant history of COPD, hypertension, CHF, chronic back pain and recent Covid diagnosis April 30 had fever cough shortness of breath for the past week. He describes passing out while standing up he was highly diaphoretic as witnessed by his . ER work- up patient was found not to be hypoxic or orthostatic. Home Medications Scheduled Aspirin (Aspirin EC) 81 Mg Tab, 81 MG PO DAILY, (Reported) Atorvastatin Calcium (Atorvastatin Calcium) 20 Mg Tab, 20 MG PO DAILY, (Reported) Clopidogrel Bisulfate (Plavix) 75 Mg Tab, 75 MG PO DAILY, (Reported) Metoprolol Succinate (Metoprolol Succinate) 25 Mg Tab, 25 MG PO DAILY, (Reported) Multivitamins (Multivitamin Adults) 1 Tab Tab, 1 TAB PO DAILY, (Reported) Nitroglycerin (Nitrostat) 0.4 Mg Subl, 0.4 MG SL NITRO, (Reported) Omeprazole (Omeprazole) 40 Mg Cap, 40 MG PO DAILY, (Reported) Ranolazine (Ranexa) 500 Mg Ca, 500 MG PO BID, (Reported) Allergies Coded Allergies: cefuroxime (Verified Allergy, Unknown, heart irregularity, 05/07/21) Past Medical History Medical History COPD, CHF, hypertension, [place], CAD, chronic back pain Surgical History Cardiac stent, appendectomy Family History Significant Family History: No pertinent family hx Social History * Smoker: former Smoker Alcohol: Denies Drugs: denies Recent Travel/Sick Contacts: Denies: Recent travel, Recent sick contacts Psychosocial History: No pertinent psych hx A-FIB/CHADSVASC A-FIB History Current/History of A-Fib/PAF?: No Current PO Anticoag Therapy: No Review of Systems Constitutional: Reports: Fever, Weakness, Fatigue; Denies: Chills, Night Sweats Eyes: Denies: Pain, Vision change ENT: Denies: Head Aches, Ear Pain, Dysphagia Skin: Denies: Rash, Lesions, Breakdown Pulmonary: Denies: Dyspnea, Cough Cardiovascular: Reports: Lt Headedness, Other Symptoms (Syncope); Denies: Chest Pain, Palpitations, Orthopnea, Paroxysmal Noc. Dyspnea Gastrointestinal: Denies: Nausea, Vomiting, Abdominal Pain, Diarrhea Genitourinary: Denies: Dysuria, Frequency, Incontinence, Retention Hematologic: Denies: Bruising, Bleeding Excessively Musculoskeletal: Denies: Neck Pain, Back Pain, Joint Pain, Muscle Pain, Spasms Neurological: Denies: Weakness, Numbness, Change in speech, Confusion Psych: Reports: Mood Normal; Denies: Depression, Memory Issues Physical Examination General Exam: Positive: Alert, Cooperative, No Acute Distress Eye Exam: Positive: PERRLA, Conjunctiva & lids normal, EOMI; Negative: Sclera icteric ENT Exam: Positive: Atraumatic, Mucous membr. moist/pink, Pharynx Normal Neck Exam: Positive: Supple; Negative: JVD, thyromegaly Chest Exam: Positive: Rales Heart Exam: Positive: Rate Normal, Regular Rhythm, Normal S1, Normal S2; Negative: Murmurs, Rubs Telemetry: Positive: No significant arrhythmia Abdomen Exam: Positive: Normal bowel sounds, Soft; Negative: Tenderness, Hepatospenomegaly Extremity Exam: Positive: Normal pulses; Negative: Clubbing, Cyanosis, Edema Skin Exam: Positive: Nl turgor and temperature; Negative: Breakdown, Lesion Neuro Exam: Positive: Normal Gait, Normal Speech, Cranial Nerves 3-12 NL, Reflexes 2+ Psych Exam: Positive: Mental status NL, Mood NL, Oriented x 3 Vital Signs BP 1 14/76, heart rate 86, SPO2 95% on room air, respiratory rate 18, T 99.5 Fahrenheit Assessment/Plan 1. Covid pneumonia in patient with COPD: -Monitor patient respiratory status -Premedications Benadryl and Tylenol -Monoclonal antibody infusion per protocol -Discharge with written instructions for home monitoring once infusion complete per protocol 2. Chronic conditions: Patient to continue home medications accordingly and notify PCP 3. Class 1 obesity complicates care Disposition: Home once infusion complete per protocol parameters Plan / VTE VTE Prophylaxis Ordered?: Yes MIGUEL DAVE NP May 08, 2021 05:05 MARY LOU STEPHENSON MD May 15, 2021 02:40
[~2021-05-08 06:45] MED LIST changes: +ACETAMINOPHEN TAB 650MG DOSE (2X325MG) PO ONE; +ALBUTEROL 90 MCG/ACT 8GM HFA INHALER INH PRN; +ALBUTEROL SULFATE 2.5 MG/0.5 ML INH NEB SOLN INH PRN; +EPINEPHrine INJ 1 MG/ML 1ML AMP IM PRN; +NS 1,000 ML IV SCH; +diphenhydrAMINE 25MG CAP PO ONE; +diphenhydrAMINE 50MG/ML VIAL (J1200) IV PRN; +methylPREDNISolone 125MG 2ML VIAL IV PRN
[2021-05-08 06:47] VITALS: BP 125/70
[2021-05-08] MEDS ORDERED: CASIRIVIMAB/IMDEVIMAB 1,200 MG in NS 250 ML IV ONE (07:00)
[2021-05-08 09:00] VITALS: BP 103/60
[2021-05-08 09:42] VITALS: BP 103/74
[2021-05-08 11:00] VITALS: BP 107/70
== END 2021-05-08 11:10 | disposition home or self-care (01) ==
LOC: M 4MAIN 06:45 → M OPCLI4 06:45
PROVIDERS: ATTEND Emergency Medicine
DX: U07.1 COVID-19 (principal)

== ENCOUNTER → 2021-06-21 | Outpatient (REF) | payer OTHER ==
[~2021-06-21] MED LIST changes: -ACETAMINOPHEN TAB 650MG DOSE (2X325MG) PO ONE; -ALBUTEROL 90 MCG/ACT 8GM HFA INHALER INH PRN; -ALBUTEROL SULFATE 2.5 MG/0.5 ML INH NEB SOLN INH PRN; -EPINEPHrine INJ 1 MG/ML 1ML AMP IM PRN; -NS 1,000 ML IV SCH; -diphenhydrAMINE 25MG CAP PO ONE; -diphenhydrAMINE 50MG/ML VIAL (J1200) IV PRN; -methylPREDNISolone 125MG 2ML VIAL IV PRN
[2021-06-21 12:52] LABS: BASO % 0.3 % (0.0-1.0); EOS # 0.1 10^3/uL (0.0-0.5); EOS % 1.3 % (0.0-3.0); HEMATOCRIT 43.2 % (42.0-52.0); HEMOGLOBIN 14.6 g/dl (13.5-17.5); LYMPH # 2.7 10^3/uL (1.5-5.0); LYMPH % 25.9 % (24.0-44.0); MEAN CORPUSCULAR HEMOGLOBIN 30.3 pg (27.0-33.0); MEAN CORPUSCULAR HGB CONC 33.8 g/dl (32.0-36.5); MEAN CORPUSCULAR VOLUME 89.6 fl (80.0-96.0); MONO # 0.9 10^3/uL (0.0-0.8); MONO % 8.9 % (2.0-8.0); NEUTROPHILS # 6.5 10^3/uL (1.5-8.5); NEUTROPHILS % 63.3 % (36.0-66.0); PLATELET COUNT, AUTOMATED 162 10^3/uL (150-450); RED BLOOD COUNT 4.82 10^6/uL (4.30-6.10); WHITE BLOOD COUNT 10.2 10^3/uL (4.0-10.0)
[2021-06-21 13:20] LABS: ALT/SGPT 31 U/L (12-78); BILIRUBIN,TOTAL 0.4 MG/DL (0.2-1.0); BLOOD UREA NITROGEN 17 MG/DL (7-18); CALCIUM LEVEL 9.4 MG/DL (8.8-10.2); CARBON DIOXIDE LEVEL 29 MEQ/L (21-32); CHLORIDE LEVEL 108 MEQ/L (98-107); CK-MB VALUE MASS 1.5 NG/ML (<3.6); CPK CREATINE PHOSPHOKINASE 81 U/L (39-308); CREATININE FOR GFR 0.86 MG/DL (0.70-1.30); GLOMERULAR FILTRATION RATE > 60.0 (>49); GLUCOSE, FASTING 99 MG/DL (70-100); MAGNESIUM LEVEL 2.1 MG/DL (1.8-2.4); MB/CK RELATIVE INDEX 1.85 (< OR =4); POTASSIUM SERUM 4.2 MEQ/L (3.5-5.1); SODIUM LEVEL 139 MEQ/L (136-145); TOTAL PROTEIN 7.5 GM/DL (6.4-8.2); TROPONIN I < 0.02 NG/ML (< 0.10)
[2021-06-21 13:40] LABS: HEMOGLOBIN A1c 5.5 %
== END ==
LOC: M SFHCADAM 10:44
PROVIDERS: ATTEND Physician Assistant
DX: I25.2 Old myocardial infarction (principal); E78.5 Hyperlipidemia, unspecified; R07.89 Other chest pain; I49.8 Other specified cardiac arrhythmias

== ENCOUNTER → 2021-06-22 | Outpatient (CLI) | payer BC, OTHER ==
[~2021-06-22] MED LIST changes: +ISOVUE-370 76% 100ML VIAL As Ordered ONE
--- NOTE | 2021-06-22 16:26 | REPVR ---
PROCEDURE INFORMATION: Exam: CTA Chest With Contrast Exam date and time: 06/22/2021 3:37 PM Age: 61 years old Clinical indication: Pain; Angina pectoris; Additional info: Atypical chest pain TECHNIQUE: Imaging protocol: Computed tomographic angiography of the chest with contrast. 3D rendering (Not supervised by radiologist): MIP and/or 3D reconstructed images were created by the technologist. Radiation optimization: All CT scans at this facility use at least one of these dose optimization techniques: automated exposure control; mA and/or kV adjustment per patient size (includes targeted exams where dose is matched to clinical indication); or iterative reconstruction. Contrast material: ISOVUE 370; Contrast volume: 100 ml; Contrast route: INTRAVENOUS (IV); COMPARISON: CT ANGIO CHEST 05/08/2021 1:38 AM FINDINGS: Pulmonary arteries: Normal. No pulmonary emboli. Aorta: No evidence of thoracic aortic aneurysm or dissection. Thyroid: There is a 3.3 cm nodule within the isthmus of the thyroid . No change from recent prior scan. Lungs: There is paraseptal and centrilobular emphysema particularly in the upper lobes. There are posterior areas of ground-glass opacity. There was much more extensive multi segment ground-glass opacity on the previous scan. This has markedly resolved. Some of the remaining areas are due to dependent atelectasis. No new area of consolidation. Pleural spaces: Unremarkable. No pneumothorax. No pleural effusion. Heart: Unremarkable. No cardiomegaly. No pericardial effusion. Lymph nodes: There are nonspecific mediastinal and hilar lymph nodes, measuring up to 10 mm in short axis. These are stable compared with the prior scan. Adrenal glands: There is a 2.6 cm left adrenal hypodense nodule. Density measurements are most consistent with adrenal adenoma. No change from recent comparison scan. Bones/joints: Unremarkable. No acute fracture. Soft tissues: Unremarkable. IMPRESSION: 1. No evidence of pulmonary artery emboli. 2. Marked resolution of ground-glass infiltrates compared with prior scan distant with resolving Covid pneumonia. 3. Mediastinal and hilar adenopathy unchanged from prior scan. 4. 3.3 cm thyroid nodule, recommend follow-up with thyroid ultrasound if not already performed. No change from recent scan. 5. Stable left adrenal adenoma. COMMENTS: Consistent with the [employer]'s Incidental Findings Committee white paper (J Am Claudia Radiol 2015): In patients aged 35 years and older with an incidental thyroid nodule equal to or greater than 1.[address], MRI or extrathyroidal US, further evaluation with dedicated thyroid US is recommended for patients with normal life expectancy and without comorbidities. For smaller nodules without suspicious features, no further evaluation or follow up is recommended. Electronically signed by: Jer Singer On 06/22/2021 16:25:53 PM
== END ==
LOC: M RAD 15:16
PROVIDERS: ATTEND Physician Assistant
DX: R07.89 Other chest pain (principal); R91.8 Other nonspecific abnormal finding of lung field; E04.1 Nontoxic single thyroid nodule; D35.02 Benign neoplasm of left adrenal gland
CPT/HCPCS: 71275; Q9967

== ENCOUNTER → 2021-06-22 | Outpatient (REF) | payer OTHER ==
[~2021-06-22] MED LIST changes: -ISOVUE-370 76% 100ML VIAL As Ordered ONE
== END ==
LOC: M SFHCADAM 10:26
PROVIDERS: ATTEND Physician Assistant
DX: R07.89 Other chest pain (principal); Z86.16 Personal history of COVID-19

== ENCOUNTER → 2022-06-06 | Outpatient (REF) | payer OTHER ==
[2022-06-06 18:02] LABS: HEMOGLOBIN 15.2 g/dl (13.5-17.5); MEAN CORPUSCULAR HEMOGLOBIN 30.5 pg (27.0-33.0); MEAN CORPUSCULAR VOLUME 92.4 fl (80.0-96.0); PLATELET COUNT, AUTOMATED 160 10^3/uL (150-450); RED BLOOD COUNT 4.98 10^6/uL (4.30-6.10); WHITE BLOOD COUNT 9.8 10^3/uL (4.0-10.0)
[2022-06-06 18:24] LABS: HEMOGLOBIN A1c 5.5 %
[2022-06-06 19:11] LABS: ALBUMIN 4.1 GM/DL (3.2-5.2); ALT/SGPT 43 U/L (12-78); BILIRUBIN,TOTAL 0.3 MG/DL (0.2-1.0); BLOOD UREA NITROGEN 21 MG/DL (7-18); CALCIUM LEVEL 8.9 MG/DL (8.8-10.2); CARBON DIOXIDE LEVEL 25 MEQ/L (21-32); CHLORIDE LEVEL 108 MEQ/L (98-107); CHOLESTEROL LEVEL 136 MG/DL (<200); CREATININE FOR GFR 0.98 MG/DL (0.70-1.30); FREE T4 0.73 NG/DL (0.76-1.46); GLOMERULAR FILTRATION RATE > 60.0 (>49); GLUCOSE, FASTING 139 MG/DL (70-100); HDL CHOLESTEROL 20 MG/DL (>40); NON-HDL-C 116 MG/DL; POTASSIUM SERUM 4.1 MEQ/L (3.5-5.1); SODIUM LEVEL 140 MEQ/L (136-145); TOTAL PROTEIN 7.3 GM/DL (6.4-8.2); TRIGLYCERIDES LEVEL 773 MG/DL (<150)
== END ==
LOC: M SFHCADAM 13:53
PROVIDERS: ATTEND Physician Assistant
DX: E04.1 Nontoxic single thyroid nodule (principal); K22.70 Barrett's esophagus without dysplasia; E78.5 Hyperlipidemia, unspecified; I49.8 Other specified cardiac arrhythmias; I25.2 Old myocardial infarction; F17.210 Nicotine dependence, cigarettes, uncomplicated; Z12.5 Encounter for screening for malignant neoplasm of prostate; Z13.1 Encounter for screening for diabetes mellitus
CPT/HCPCS: 80053; 80061; 83036; 84439; 84443; 85027; G0103

== ENCOUNTER → 2022-06-20 | Outpatient (CLI) | payer BC, OTHER | LOC: M RAD 06:21 | PROVIDERS: ATTEND Physician Assistant | DX: Z12.2 Encounter for screening for malignant neoplasm of respiratory organs (principal); F17.210 Nicotine dependence, cigarettes, uncomplicated; R91.8 Other nonspecific abnormal finding of lung field ==

== ENCOUNTER → 2022-06-22 | Outpatient (CLI) | payer BC, OTHER ==
[~2022-06-22] MED LIST changes: +CLOP75TA99 PO; -PLAV1TAB2 PO
[2022-06-22 13:58] LABS: CHOLESTEROL RISK RATIO 4.857 (<5)
== END ==
LOC: M LABDRWAD 08:24
PROVIDERS: ATTEND Physician Assistant
DX: I25.10 Atherosclerotic heart disease of native coronary artery without angina pectoris (principal); I25.84 Coronary atherosclerosis due to calcified coronary lesion

== ENCOUNTER → 2022-06-26 | Outpatient (CLI) | payer BC, OTHER | LOC: M LABSMTC 09:49 | PROVIDERS: ATTEND Anesthesiology | DX: Z01.812 Encounter for preprocedural laboratory examination (principal); Z11.52 Encounter for screening for COVID-19 ==

== ENCOUNTER 2022-06-29 09:59 | Day surgery (SDC) | payer BC, OTHER ==
[~2022-06-29] VITALS: Ht 170.2 cm; Wt 97.1 kg
[~2022-06-29 09:59] MED LIST changes: +NS 1,000 ML IV ONE
[2022-06-29] MEDS ORDERED: propofoL 200 MG/20 ML VIAL As Ordered ONE (11:26)
[2022-06-29] MEDS ORDERED: LIDOCAINE 2% 100MG/5ML SDV (FOR ANES.) As Ordered ONE (11:27)
[2022-06-29 12:43] VITALS: BP 129/82
== END 2022-06-29 13:03 | disposition home or self-care (01) ==
LOC: M OPP 09:59
PROVIDERS: ATTEND Internal Medicine Gastroenterology
DX: Z12.11 Encounter for screening for malignant neoplasm of colon (principal); Z86.010 Personal history of colon polyps; D12.6 Benign neoplasm of colon, unspecified; K57.30 Diverticulosis of large intestine without perforation or abscess without bleeding; K64.0 First degree hemorrhoids; K22.89 Other specified disease of esophagus; K44.9 Diaphragmatic hernia without obstruction or gangrene; K29.60 Other gastritis without bleeding; K22.70 Barrett's esophagus without dysplasia; Z79.02 Long term (current) use of antithrombotics/antiplatelets; Z79.82 Long term (current) use of aspirin; Z79.899 Other long term (current) drug therapy; Z88.2 Allergy status to sulfonamides; Z88.8 Allergy status to other drugs, medicaments and biological substances; F17.200 Nicotine dependence, unspecified, uncomplicated; I25.2 Old myocardial infarction; E04.1 Nontoxic single thyroid nodule; E78.5 Hyperlipidemia, unspecified; I10 Essential (primary) hypertension; Z86.16 Personal history of COVID-19; Z95.5 Presence of coronary angioplasty implant and graft

== ENCOUNTER → 2022-08-30 | Outpatient (REF) | payer OTHER ==
[~2022-08-30] MED LIST changes: -NS 1,000 ML IV ONE
[2022-08-30 13:19] LABS: HEMATOCRIT 46.3 % (42.0-52.0); HEMOGLOBIN 15.5 g/dl (13.5-17.5); MEAN CORPUSCULAR HEMOGLOBIN 30.3 pg (27.0-33.0); MEAN CORPUSCULAR HGB CONC 33.5 g/dl (32.0-36.5); MEAN CORPUSCULAR VOLUME 90.4 fl (80.0-96.0); PLATELET COUNT, AUTOMATED 166 10^3/uL (150-450); RED BLOOD COUNT 5.12 10^6/uL (4.30-6.10)
[2022-08-30 13:33] LABS: HEMOGLOBIN A1c 5.2 % (4.0-6.0)
[2022-08-30 13:52] LABS: ALBUMIN 4.1 G/DL (3.2-5.2); ALKALINE PHOSPHATASE 68 U/L (46-116); ALT/SGPT 39 U/L (7.0-40); AST/SGOT 25 U/L (<34); BILIRUBIN,TOTAL 0.4 MG/DL (0.3-1.2); BLOOD UREA NITROGEN 20 MG/DL (9-23); CALCIUM LEVEL 9.2 MG/DL (8.3-10.6); CARBON DIOXIDE LEVEL 25 MMOL/L (20-31); CHLORIDE LEVEL 107 MMOL/L (98-107); CHOLESTEROL LEVEL 125 MG/DL (<200); CREATININE FOR GFR 0.63 MG/DL (0.70-1.30); GLOMERULAR FILTRATION RATE > 60.0 (>49); GLUCOSE, FASTING 102 MG/DL (74-106); HDL CHOLESTEROL 29.7 MG/DL (>40); LDL CHOLESTEROL 49.5 MG/DL (<100); NON-HDL-C 95 MG/DL; POTASSIUM SERUM 4.4 MMOL/L (3.5-5.1); SODIUM LEVEL 141 MMOL/L (136-145); TOTAL PROTEIN 7.2 G/DL (5.7-8.2); TRIGLYCERIDES LEVEL 229 MG/DL (<150)
[2022-08-30 13:59] LABS: THYROID STIMULATING HORMONE 1.886 uIU/ML (0.55-4.78)
[2022-08-30 14:00] LABS: FREE T4 0.93 NG/DL (0.89-1.76)
== END ==
LOC: M SFHCADAM 08:20
PROVIDERS: ATTEND Physician Assistant
DX: Z12.5 Encounter for screening for malignant neoplasm of prostate (principal); K22.70 Barrett's esophagus without dysplasia; F17.200 Nicotine dependence, unspecified, uncomplicated; B37.9 Candidiasis, unspecified; I25.2 Old myocardial infarction; E78.5 Hyperlipidemia, unspecified; I20.8 Other forms of angina pectoris; Z13.1 Encounter for screening for diabetes mellitus; E78.1 Pure hyperglyceridemia
CPT/HCPCS: 80053; 80061; 83036; 84439; 84443; 85027; G0103

== ENCOUNTER → 2023-04-09 | Outpatient (CLI) | payer BC, OTHER | LOC: M RAD 13:54 | PROVIDERS: ATTEND Internal Medicine Cardiovascular Disease | DX: I25.10 Atherosclerotic heart disease of native coronary artery without angina pectoris (principal); I10 Essential (primary) hypertension; E78.5 Hyperlipidemia, unspecified; I73.9 Peripheral vascular disease, unspecified; Z72.0 Tobacco use ==

== ENCOUNTER → 2023-05-07 | Outpatient (REF) | payer OTHER | LOC: M SFHCADAM 15:06 | PROVIDERS: ATTEND Physician Assistant | DX: Z53.9 Procedure and treatment not carried out, unspecified reason (principal); L98.9 Disorder of the skin and subcutaneous tissue, unspecified; B37.9 Candidiasis, unspecified; L30.9 Dermatitis, unspecified; F17.210 Nicotine dependence, cigarettes, uncomplicated; I25.2 Old myocardial infarction; E78.5 Hyperlipidemia, unspecified; K22.70 Barrett's esophagus without dysplasia; E04.1 Nontoxic single thyroid nodule; Z12.5 Encounter for screening for malignant neoplasm of prostate ==

== ENCOUNTER → 2023-07-04 | Outpatient (CLI) | payer BC, OTHER | LOC: M RAD 08:30 | PROVIDERS: ATTEND Physician Assistant | DX: Z12.2 Encounter for screening for malignant neoplasm of respiratory organs (principal); F17.210 Nicotine dependence, cigarettes, uncomplicated ==

== ENCOUNTER → 2023-08-09 | Outpatient (REF) | payer BC, OTHER | LOC: M SFHCADAM 11:30 | PROVIDERS: ATTEND Physician Assistant | DX: Z53.9 Procedure and treatment not carried out, unspecified reason (principal); R33.8 Other retention of urine; R10.2 Pelvic and perineal pain ==

== ENCOUNTER → 2023-08-09 | Outpatient (CLI) | payer BC, OTHER ==
[~2023-08-09] MED LIST changes: +ISOVUE-370 76% 100ML VIAL As Ordered ONE
[2023-08-09 11:15] LABS: BASO % 0.3 % (0.0-1.0); EOS # 0.2 10^3/uL (0.0-0.5); EOS % 1.6 % (0.0-3.0); HEMATOCRIT 44.2 % (42.0-52.0); HEMOGLOBIN 14.9 g/dl (13.5-17.5); LYMPH # 3.1 10^3/uL (1.5-5.0); LYMPH % 27.1 % (24.0-44.0); MEAN CORPUSCULAR HEMOGLOBIN 30.3 pg (27.0-33.0); MEAN CORPUSCULAR HGB CONC 33.7 g/dl (32.0-36.5); MONO # 1.1 10^3/uL (0.0-0.8); MONO % 9.2 % (2.0-8.0); NEUTROPHILS # 7.1 10^3/uL (1.5-8.5); NEUTROPHILS % 61.5 % (36.0-66.0); PLATELET COUNT, AUTOMATED 160 10^3/uL (150-450); RED BLOOD COUNT 4.91 10^6/uL (4.30-6.10); WHITE BLOOD COUNT 11.5 10^3/uL (4.0-10.0)
[2023-08-09 11:37] LABS: ALBUMIN 3.8 G/DL (3.2-5.2); ALKALINE PHOSPHATASE 62 U/L (46-116); ALT/SGPT 22 U/L (7.0-40); AST/SGOT 16 U/L (<34); BILIRUBIN,TOTAL 0.4 MG/DL (0.3-1.2); BLOOD UREA NITROGEN 17 MG/DL (9-23); CALCIUM LEVEL 9.2 MG/DL (8.3-10.6); CARBON DIOXIDE LEVEL 27 MMOL/L (20-31); CHLORIDE LEVEL 105 MMOL/L (98-107); CREATININE FOR GFR 0.69 MG/DL (0.70-1.30); GLOMERULAR FILTRATION RATE > 60.0 (>49); GLUCOSE, FASTING 86 MG/DL (74-106); POTASSIUM SERUM 4.3 MMOL/L (3.5-5.1); PSA SCREENING 0.47 NG/ML (< 4.00); SODIUM LEVEL 136 MMOL/L (136-145); TOTAL PROTEIN 6.7 G/DL (5.7-8.2)
[2023-08-09 11:56] LABS: APPEARANCE, URINE CLEAR (CLEAR); BACTERIA, URINE AUTO NEGATIVE (NEGATIVE); BILIRUBIN, URINE AUTO NEGATIVE (NEGATIVE); BLOOD, URINE BLOOD NEGATIVE (NEGATIVE); COLOR, URINE YELLOW (YELLOW); GLUCOSE, URINE (UA) AUTO NEGATIVE (NEGATIVE); KETONE, URINE AUTO NEGATIVE (NEGATIVE); LEUKOCYTE ESTERASE, URINE AUTO 2+ (NEGATIVE); MUCUS, URINE SMALL (NEGATIVE); NITRITE, URINE AUTO NEGATIVE (NEGATIVE); PROTEIN, URINE AUTO NEGATIVE (NEGATIVE); RBC, URINE AUTO 1 /HPF (0-3); SPECIFIC GRAVITY URINE AUTO 1.013 (1.002-1.035); SQUAMOUS EPITHELIAL CELL UR AU 0 /HPF (0-6); UROBILINOGEN, URINE AUTO 0.2 mg/dL (0.0-2.0); WBC, URINE AUTO 10 /HPF (0-3)
== END ==
LOC: M RAD 09:30
PROVIDERS: ATTEND Physician Assistant
DX: N41.0 Acute prostatitis (principal); R33.8 Other retention of urine; R10.2 Pelvic and perineal pain; D35.00 Benign neoplasm of unspecified adrenal gland
CPT/HCPCS: 36415; 74178; 80053; 81001; 85025; 87086; G0103; Q9967

== ENCOUNTER 2023-10-08 12:03 | Emergency (ER) | payer BC, OTHER ==
[~2023-10-08] VITALS: Ht 170.2 cm; Wt 98.3 kg
[~2023-10-08 12:03] MED LIST changes: -ISOVUE-370 76% 100ML VIAL As Ordered ONE
[2023-10-08 12:44] LABS: BASO % 0.4 % (0.0-1.0); EOS # 0.2 10^3/uL (0.0-0.5); EOS % 2.1 % (0.0-3.0); HEMATOCRIT 43.4 % (42.0-52.0); HEMOGLOBIN 14.8 g/dl (13.5-17.5); LYMPH # 2.9 10^3/uL (1.5-5.0); LYMPH % 29.6 % (24.0-44.0); MEAN CORPUSCULAR HEMOGLOBIN 30.6 pg (27.0-33.0); MEAN CORPUSCULAR HGB CONC 34.1 g/dl (32.0-36.5); MEAN CORPUSCULAR VOLUME 89.9 fl (80.0-96.0); MONO # 0.9 10^3/uL (0.0-0.8); MONO % 8.9 % (2.0-8.0); NEUTROPHILS # 5.7 10^3/uL (1.5-8.5); NEUTROPHILS % 58.7 % (36.0-66.0); PLATELET COUNT, AUTOMATED 153 10^3/uL (150-450); RED BLOOD COUNT 4.83 10^6/uL (4.30-6.10); WHITE BLOOD COUNT 9.7 10^3/uL (4.0-10.0)
[2023-10-08 12:56] LABS: PROTHROMBIN TIME 12.9 SECONDS (12.5-14.5)
[2023-10-08 13:09] LABS: LIPASE 34 U/L (12-53)
[2023-10-08 13:12] LABS: ALBUMIN 4.1 G/DL (3.2-5.2); ALKALINE PHOSPHATASE 59 U/L (46-116); ALT/SGPT 26 U/L (7.0-40); AST/SGOT 16 U/L (<34); BILIRUBIN,DIRECT < 0.1 MG/DL (<0.4); BILIRUBIN,TOTAL 0.3 MG/DL (0.3-1.2); BLOOD UREA NITROGEN 16 MG/DL (9-23); CALCIUM LEVEL 8.9 MG/DL (8.3-10.6); CARBON DIOXIDE LEVEL 25 MMOL/L (20-31); CHLORIDE LEVEL 107 MMOL/L (98-107); CK-MB VALUE MASS < 1.0 NG/ML (<3.6); CREATININE FOR GFR 0.71 MG/DL (0.70-1.30); GLOMERULAR FILTRATION RATE > 60.0 (>49); GLUCOSE, FASTING 102 MG/DL (74-106); SODIUM LEVEL 138 MMOL/L (136-145); TOTAL PROTEIN 6.7 G/DL (5.7-8.2)
[2023-10-08] MEDS ORDERED: METO1TAB7 (13:13)
[2023-10-08] MEDS ORDERED: NAPR220C14 PO (13:13)
[2023-10-08 13:19] LABS: CPK CREATINE PHOSPHOKINASE 90 U/L (46-171); MB/CK RELATIVE INDEX 1.11 (< OR =4)
[2023-10-08 13:23] LABS: RSV AMPLIFICATION NEGATIVE (NEGATIVE)
[2023-10-08 14:02] LABS: D-DIMER QUANT 1.71 ug/mL (<0.5)
[2023-10-08] MEDS ORDERED: ISOVUE-370 76% 100ML VIAL As Ordered ONE (14:14)
[2023-10-08 14:39] LABS: CK-MB VALUE MASS < 1.0 NG/ML (<3.6)
[2023-10-08 14:40] LABS: CPK CREATINE PHOSPHOKINASE 92 U/L (46-171); MB/CK RELATIVE INDEX 1.08 (< OR =4)
[2023-10-08 16:28] VITALS: BP 141/78; TEMP 97.2; O2SAT 94
== END 2023-10-08 16:51 | disposition home or self-care (01) ==
LOC: EDBD 12:03 → M ED 12:03
DX: R07.9 Chest pain, unspecified (principal); I25.42 Coronary artery dissection; I10 Essential (primary) hypertension; F17.210 Nicotine dependence, cigarettes, uncomplicated; Z91.048 Other nonmedicinal substance allergy status; Z88.8 Allergy status to other drugs, medicaments and biological substances; Z79.899 Other long term (current) drug therapy; Z79.810 Long term (current) use of selective estrogen receptor modulators (SERMs); Z79.1 Long term (current) use of non-steroidal anti-inflammatories (NSAID)
CPT/HCPCS: 36415; 71045; 71275; 80048; 80076; 82550; 82553; 83690; 84484; 85025; 85379; 85610; 87631; 93005; 93041; 94760; 99285; Q9967

== ENCOUNTER → 2023-10-17 | Outpatient (REF) | payer BC ==
[~2023-10-17] MED LIST changes: +METO1TAB7; +NAPR220C14 PO
[2023-10-17 14:21] LABS: CREATININE, URINE 26.2 MG/DL
[2023-10-17 14:22] LABS: MAU/CREAT RATIO 15.2 MCG/MG (0.0-30.0)
[2023-10-17 14:23] LABS: CHOLESTEROL LEVEL 129 MG/DL (<200); CHOLESTEROL RISK RATIO 4.79 (<5); HDL CHOLESTEROL 26.9 MG/DL (>40); LDL CHOLESTEROL 35.5 MG/DL (<100); NON-HDL-C 102.1 MG/DL; TRIGLYCERIDES LEVEL 333 MG/DL (<150)
[2023-10-17 14:25] LABS: FREE T4 0.88 NG/DL (0.89-1.76); THYROID STIMULATING HORMONE 1.493 uIU/ML (0.55-4.78)
[2023-10-17 14:30] LABS: FOLATE > 24.0 NG/ML (>5.4); VITAMIN B12 LEVEL 604 PG/ML (211-911)
== END ==
LOC: M SFHCADAM 10:43
PROVIDERS: ATTEND Physician Assistant
DX: L98.9 Disorder of the skin and subcutaneous tissue, unspecified (principal); B37.9 Candidiasis, unspecified; L30.9 Dermatitis, unspecified; F17.210 Nicotine dependence, cigarettes, uncomplicated; Z12.5 Encounter for screening for malignant neoplasm of prostate; K22.70 Barrett's esophagus without dysplasia; E78.5 Hyperlipidemia, unspecified; E04.1 Nontoxic single thyroid nodule; I25.2 Old myocardial infarction

== ENCOUNTER → 2023-11-28 | Outpatient (REF) | payer BC ==
[2023-11-28 18:07] LABS: BASO % 0.4 % (0.0-1.0); EOS # 0.2 10^3/uL (0.0-0.5); EOS % 1.9 % (0.0-3.0); HEMATOCRIT 44.2 % (42.0-52.0); HEMOGLOBIN 14.9 g/dl (13.5-17.5); LYMPH # 2.9 10^3/uL (1.5-5.0); LYMPH % 28.1 % (24.0-44.0); MEAN CORPUSCULAR HEMOGLOBIN 30.8 pg (27.0-33.0); MEAN CORPUSCULAR HGB CONC 33.7 g/dl (32.0-36.5); MEAN CORPUSCULAR VOLUME 91.3 fl (80.0-96.0); MONO % 9.1 % (2.0-8.0); NEUTROPHILS # 6.3 10^3/uL (1.5-8.5); NEUTROPHILS % 60.3 % (36.0-66.0); PLATELET COUNT, AUTOMATED 159 10^3/uL (150-450); RED BLOOD COUNT 4.84 10^6/uL (4.30-6.10); WHITE BLOOD COUNT 10.4 10^3/uL (4.0-10.0)
[2023-11-28 18:34] LABS: BLOOD UREA NITROGEN 19 MG/DL (9-23); CARBON DIOXIDE LEVEL 28 MMOL/L (20-31); CHLORIDE LEVEL 106 MMOL/L (98-107); CREATININE FOR GFR 0.86 MG/DL (0.70-1.30); GLOMERULAR FILTRATION RATE > 60.0 (>49); GLUCOSE, FASTING 93 MG/DL (74-106); POTASSIUM SERUM 3.9 MMOL/L (3.5-5.1); SODIUM LEVEL 140 MMOL/L (136-145)
== END ==
LOC: M LABDRWAD 17:14
PROVIDERS: ATTEND Physician Assistant
DX: I25.10 Atherosclerotic heart disease of native coronary artery without angina pectoris (principal); I25.84 Coronary atherosclerosis due to calcified coronary lesion

== ENCOUNTER → 2024-05-05 | Outpatient (REF) | payer MEDICARE, BC ==
[2024-05-05 13:14] LABS: BASO % 0.3 % (0.0-1.0); EOS # 0.2 10^3/uL (0.0-0.5); EOS % 1.4 % (0.0-3.0); HEMATOCRIT 45.3 % (42.0-52.0); HEMOGLOBIN 15.3 g/dl (13.5-17.5); LYMPH # 2.8 10^3/uL (1.5-5.0); LYMPH % 25.7 % (24.0-44.0); MEAN CORPUSCULAR HEMOGLOBIN 30.5 pg (27.0-33.0); MEAN CORPUSCULAR HGB CONC 33.8 g/dl (32.0-36.5); MEAN CORPUSCULAR VOLUME 90.2 fl (80.0-96.0); NEUTROPHILS # 6.8 10^3/uL (1.5-8.5); NEUTROPHILS % 63.3 % (36.0-66.0); PLATELET COUNT, AUTOMATED 161 10^3/uL (150-450); RED BLOOD COUNT 5.02 10^6/uL (4.30-6.10); WHITE BLOOD COUNT 10.7 10^3/uL (4.0-10.0)
[2024-05-05 13:19] LABS: ALBUMIN 4.1 G/DL (3.2-5.2); ALKALINE PHOSPHATASE 77 U/L (46-116); ALT/SGPT 31 U/L (7.0-40); AST/SGOT 16 U/L (<34); BILIRUBIN,TOTAL 0.3 MG/DL (0.3-1.2); BLOOD UREA NITROGEN 18 MG/DL (9-23); CALCIUM LEVEL 9.6 MG/DL (8.3-10.6); CARBON DIOXIDE LEVEL 28 MMOL/L (20-31); CHLORIDE LEVEL 109 MMOL/L (98-107); GLOMERULAR FILTRATION RATE > 60.0 (>49); GLUCOSE, FASTING 96 MG/DL (74-106); POTASSIUM SERUM 4.2 MMOL/L (3.5-5.1); SODIUM LEVEL 139 MMOL/L (136-145); TOTAL PROTEIN 7.5 G/DL (5.7-8.2)
== END ==
LOC: M SFHCADAM 09:30
PROVIDERS: ATTEND Physician Assistant
DX: I25.118 Atherosclerotic heart disease of native coronary artery with other forms of angina pectoris (principal)

== ENCOUNTER → 2024-06-05 | Outpatient (CLI) | payer MEDICARE, BC | LOC: M RAD 13:06 | PROVIDERS: ATTEND Physician Assistant | DX: E05.00 Thyrotoxicosis with diffuse goiter without thyrotoxic crisis or storm (principal) ==

== ENCOUNTER → 2024-07-31 | Outpatient (REF) | payer MEDICARE, BC ==
[~2024-07-31] MED LIST changes: +ALBU8.5H; +LOSA25TA13 PO; -METO1TAB7; +METO1TAB7 PO; +OMEP40CA5 PO; +RANO500T2 PO; +THERTAB52 PO
[2024-07-31 17:15] LABS: HEMATOCRIT 44.5 % (42.0-52.0); HEMOGLOBIN 14.8 g/dl (13.5-17.5); MEAN CORPUSCULAR HEMOGLOBIN 30.6 pg (27.0-33.0); MEAN CORPUSCULAR HGB CONC 33.3 g/dl (32.0-36.5); MEAN CORPUSCULAR VOLUME 92.1 fl (80.0-96.0); PLATELET COUNT, AUTOMATED 158 10^3/uL (150-450); RED BLOOD COUNT 4.83 10^6/uL (4.30-6.10); WHITE BLOOD COUNT 10.2 10^3/uL (4.0-10.0)
[2024-07-31 17:28] LABS: INR 0.97; PROTHROMBIN TIME 13.2 SECONDS (12.5-14.5)
[2024-07-31 17:50] LABS: ALBUMIN 3.9 G/DL (3.2-5.2); ALKALINE PHOSPHATASE 69 U/L (40-129); ALT/SGPT 36 U/L (7.0-40); AST/SGOT 19 U/L (<34); BILIRUBIN,TOTAL 0.3 MG/DL (0.3-1.2); BLOOD UREA NITROGEN 20 MG/DL (9-23); CALCIUM LEVEL 9.7 MG/DL (8.3-10.6); CARBON DIOXIDE LEVEL 25 MMOL/L (20-31); CHLORIDE LEVEL 106 MMOL/L (98-107); GLOMERULAR FILTRATION RATE > 60.0 (>49); GLUCOSE, FASTING 99 MG/DL (74-106); SODIUM LEVEL 139 MMOL/L (136-145); TOTAL PROTEIN 7.2 G/DL (5.7-8.2)
[2024-07-31 17:51] LABS: THYROID STIMULATING HORMONE 1.758 uIU/ML (0.55-4.78)
[2024-07-31 17:52] LABS: FREE T4 0.97 NG/DL (0.89-1.76)
== END ==
LOC: M SFHCADAM 13:18
PROVIDERS: ATTEND Family Medicine
DX: Z01.818 Encounter for other preprocedural examination (principal); I25.118 Atherosclerotic heart disease of native coronary artery with other forms of angina pectoris; E04.1 Nontoxic single thyroid nodule

== ENCOUNTER → 2024-07-31 | Outpatient (CLI) | payer MEDICARE, BC | LOC: M ADAMS 13:22 | PROVIDERS: ATTEND Family Medicine | DX: Z01.818 Encounter for other preprocedural examination (principal); I25.118 Atherosclerotic heart disease of native coronary artery with other forms of angina pectoris ==

== ENCOUNTER 2024-08-06 08:52 | Day surgery (SDC) | payer MEDICARE, BC ==
[~2024-08-06] VITALS: Ht 170.2 cm; Wt 98.2 kg
[2024-08-06] MEDS ORDERED: LR 1,000 ML IV SCH (09:40)
[2024-08-06] MEDS ORDERED: SUGAMMADEX SODIUM 500 MG/5 ML VIAL (BRIDION) As Ordered ONE (10:35)
[2024-08-06] MEDS ORDERED: LIDOCAINE 2% 100MG/5ML SDV (FOR ANES.) As Ordered ONE (10:35)
[2024-08-06] MEDS ORDERED: ROCURONIUM BROMIDE 50MG/5ML VIAL As Ordered ONE (10:36)
[2024-08-06] MEDS ORDERED: propofoL 200 MG/20 ML VIAL As Ordered ONE (10:36)
[2024-08-06] MEDS ORDERED: ONDANSETRON 4MG 2ML VIAL As Ordered ONE (10:38)
[2024-08-06] MEDS ORDERED: fentaNYL 100 MCG/2 ML INJECTION As Ordered ONE (10:40)
[2024-08-06] MEDS ORDERED: MIDAZOLAM INJ 2MG/2ML VIAL As Ordered ONE (10:40)
[2024-08-06] MEDS ORDERED: ACETAMINOPHEN 1000MG/100ML IV BAG As Ordered ONE (11:49)
[2024-08-06] MEDS: OXYMETAZOLINE 0.05% NASAL SPRAY (AFRIN) As Ordered ONE (12:07)
[2024-08-06] MEDS: METHYLENE BLUE 0.5% (5MG/ML) 10 ML AMP (PROVAYBLUE) As Ordered ONE (12:07)
[2024-08-06] MEDS: LIDOCAINE W/EPINEPHRINE 1% 20ML VIAL As Ordered ONE (12:15)
[2024-08-06] MEDS ORDERED: ONDANSETRON 4MG 2ML VIAL IV PRN (12:40)
[2024-08-06] MEDS ORDERED: MORPHINE 2 MG/ML 1ML VIAL IV PRN (12:40)
[2024-08-06] MEDS ORDERED: fentaNYL 100 MCG/2 ML INJECTION IV PRN (12:40)
[2024-08-06] MEDS ORDERED: oxyCODONE 5MG TAB PO PRN (12:40)
[2024-08-06 13:28] VITALS: BP 127/72; TEMP 97.8; O2SAT 93
== END 2024-08-06 13:51 | disposition home or self-care (01) ==
LOC: M SDC 08:52
PROVIDERS: ATTEND Otolaryngology
DX: J38.1 Polyp of vocal cord and larynx (principal); J38.4 Edema of larynx; J38.3 Other diseases of vocal cords; I20.9 Angina pectoris, unspecified; I25.2 Old myocardial infarction; Z95.5 Presence of coronary angioplasty implant and graft; Z88.1 Allergy status to other antibiotic agents; J30.9 Allergic rhinitis, unspecified; Z79.899 Other long term (current) drug therapy; F17.210 Nicotine dependence, cigarettes, uncomplicated
CPT/HCPCS: 31536; 88305; J0131; J1100; J2250; J2405; J3010; Q9968

== ENCOUNTER → 2024-09-04 | Outpatient (REF) | payer MEDICARE, BC | LOC: M SFHCPLAZ 13:34 | DX: T14.8XXA Other injury of unspecified body region, initial encounter (principal) ==

== ENCOUNTER → 2024-10-06 | Outpatient (REF) | payer MEDICARE, BC ==
[2024-10-06 13:56] LABS: CHOLESTEROL RISK RATIO 4.24 (<5); HDL CHOLESTEROL 36.5 MG/DL (>40); LDL CHOLESTEROL 76.1 MG/DL (<100); NON-HDL-C 118.5 MG/DL; PSA SCREENING 0.37 NG/ML (< 4.00)
[2024-10-06 14:00] LABS: HEMOGLOBIN A1c 5.2 % (4.0-6.0)
== END ==
LOC: M SFHCADAM 09:17
PROVIDERS: ATTEND Physician Assistant
DX: Z00.00 Encounter for general adult medical examination without abnormal findings (principal); Z12.5 Encounter for screening for malignant neoplasm of prostate; E78.5 Hyperlipidemia, unspecified; K22.70 Barrett's esophagus without dysplasia; I10 Essential (primary) hypertension; I25.118 Atherosclerotic heart disease of native coronary artery with other forms of angina pectoris; Z28.21 Immunization not carried out because of patient refusal; Z79.899 Other long term (current) drug therapy
CPT/HCPCS: 80061; 83036; G0103

== ENCOUNTER → 2024-10-15 | Outpatient (CLI) | payer MEDICARE, BC | LOC: M RAD 07:38 | PROVIDERS: ATTEND Physician Assistant | DX: F17.218 Nicotine dependence, cigarettes, with other nicotine-induced disorders (principal) ==

== ENCOUNTER → 2024-10-21 | Outpatient (REF) | payer MEDICARE, OTHER ==
[2024-10-21 13:46] LABS: APPEARANCE, URINE CLEAR (CLEAR); BACTERIA, URINE AUTO NEGATIVE (NEGATIVE); BILIRUBIN, URINE AUTO NEGATIVE (NEGATIVE); BLOOD, URINE BLOOD NEGATIVE (NEGATIVE); COLOR, URINE YELLOW (YELLOW); GLUCOSE, URINE (UA) AUTO NEGATIVE (NEGATIVE); KETONE, URINE AUTO NEGATIVE (NEGATIVE); LEUKOCYTE ESTERASE, URINE AUTO 3+ (NEGATIVE); NITRITE, URINE AUTO NEGATIVE (NEGATIVE); PROTEIN, URINE AUTO NEGATIVE (NEGATIVE); RBC, URINE AUTO 2 /HPF (0-3); SPECIFIC GRAVITY URINE AUTO 1.012 (1.002-1.035); SQUAMOUS EPITHELIAL CELL UR AU 0 /HPF (0-6); UROBILINOGEN, URINE AUTO 0.2 mg/dL (0.0-2.0); WBC, URINE AUTO 10 /HPF (0-3)
== END ==
LOC: M SMT 12:58
PROVIDERS: ATTEND Nurse Practitioner Family
DX: N41.0 Acute prostatitis (principal)

== ENCOUNTER → 2024-11-24 | Outpatient (CLI) | payer MEDICARE, BC | LOC: M RAD 14:16 | PROVIDERS: ATTEND Otolaryngology | DX: D44.0 Neoplasm of uncertain behavior of thyroid gland (principal); R10.2 Pelvic and perineal pain ==

== ENCOUNTER → 2024-11-24 | Outpatient (CLI) | payer MEDICARE, BC | LOC: M RAD 14:14 | PROVIDERS: ATTEND Nurse Practitioner Family | DX: R10.2 Pelvic and perineal pain (principal) ==

== ENCOUNTER → 2025-03-17 | Outpatient (CLI) | payer MEDICARE, BC ==
[~2025-03-17] MED LIST changes: +LIDOCAINE 1% MDV 20 ML VIAL As Ordered ONE
[2025-03-17 13:20] VITALS: TEMP 98
[2025-03-17 13:56] VITALS: BP 133/70; O2SAT 98
== END ==
LOC: M IRPRO 13:16
PROVIDERS: ATTEND Otolaryngology
DX: D44.0 Neoplasm of uncertain behavior of thyroid gland (principal)

== ENCOUNTER → 2025-04-14 | Outpatient (REF) | payer MEDICARE, BC ==
[~2025-04-14] MED LIST changes: -LIDOCAINE 1% MDV 20 ML VIAL As Ordered ONE
[2025-04-14 14:26] LABS: PLATELET COUNT, AUTOMATED 149 10^3/uL (150-450)
[2025-04-14 14:40] LABS: ALT/SGPT 29 U/L (7.0-40); AST/SGOT 26 U/L (<34); CALCIUM LEVEL 9.2 MG/DL (8.3-10.6); CARBON DIOXIDE LEVEL 30 MMOL/L (20-31); CHLORIDE LEVEL 105 MMOL/L (98-107); CREATININE FOR GFR 0.81 MG/DL (0.70-1.30); GLOMERULAR FILTRATION RATE > 90.0 (>49); POTASSIUM SERUM 4.1 MMOL/L (3.5-5.1); SODIUM LEVEL 142 MMOL/L (136-145)
== END ==
LOC: M SFHCADAM 07:37
PROVIDERS: ATTEND Physician Assistant
DX: Z00.00 Encounter for general adult medical examination without abnormal findings (principal); Z12.5 Encounter for screening for malignant neoplasm of prostate; E78.5 Hyperlipidemia, unspecified; K22.70 Barrett's esophagus without dysplasia; I10 Essential (primary) hypertension; I25.118 Atherosclerotic heart disease of native coronary artery with other forms of angina pectoris; Z28.21 Immunization not carried out because of patient refusal